=== PATIENT | female | born 1970 | race Caucasian/White ===

== ENCOUNTER → 2021-10-07 13:35 | Outpatient (CLI) | payer OTHER, SELFPAY ==
--- NOTE | ~2021-10-07 | CT_ITS ---
EXAMINATION: CT IAC/mastoids BI wo con DATE: 10/07/2021 14:00 INDICATION: Bilateral chronic otitis media. TECHNIQUE: Computed tomography (CT) of the temporal bones was performed without intravenous contrast. Automated exposure control and iterative reconstruction technique were employed. The dose-length pro duct was 215.76 mGy-cm. COMPARISON: None FINDINGS: RIGHT TEMPORAL BONE: The internal auditory canal, cochlea, vestibule, semicircular canals, vestibular aqueduct, carotid ca nal, jugular bulb, facial nerve course, ossicles, Prussak space, scutum, mastoid air cells, and exter nal auditory canal are normal. There is retraction of the tympanic membrane, which is thickened. Ther e is a small volume of material anterior to the ossicles. LEFT TEMPORAL BONE: The internal auditory canal, cochlea, vestibule, semicircular canals, vestibular aqueduct, carotid ca nal, jugular bulb, and facial nerve course are normal. The ossicles are absent. There is an implant i n the tympanic cavity in the expected area of the ossicles. There is soft tissue lateral and posterio r to the implant including in Prussak space. There is blunting of the scutum. There is retraction of the tympanic membrane. There are changes of mastoidectomy. There is a small volume of material in ext ernal auditory canal, likely cerumen. IMPRESSION: 1. Small volume of material in right tympanic cavity with thickening and retraction of the tympanic m embrane. No erosions of bone. 2. Implant in the expected position of the left-sided ossicles, which are absent. 3. Material in the left tympanic cavity with erosions of the scutum and thickening and retraction of the tympanic membrane, consistent with chronic otitis media versus cholesteatoma. Reviewed, dictated and finalized at location B. IMPRESSION: 1. Small volume of material in right tympanic cavity with thickening and retrac tion of the tympanic membrane. No erosions of bone. 2. Implant in the expected position of the left-sided ossicles, which are absen t. 3. Material in the left tympanic cavity with erosions of the scutum and thicken ing and retraction of the tympanic membrane, consistent with chronic otitis med ia versus cholesteatoma.
== END ==
PROVIDERS: PCP Physician Assistant
DX: H66.93 Otitis media, unspecified, bilateral (principal)
CPT/HCPCS: 70480

== ENCOUNTER 2022-03-18 07:16 | Outpatient (CLI) | payer OTHER, SELFPAY ==
[2022-03-18 07:58] LABS: Alanine Aminotransferase 28 U/L (6-35); Albumin Level 4.3 g/dL (3.5-5.1); Alkaline Phosphatase 65 U/L (38-126); Anion Gap 7 mmol/L (8-16); Aspartate Amino Transferase 26 U/L (14-36); Bilirubin,Total 0.8 mg/dL (0.2-1.3); Blood Urea Nitrogen 14 mg/dL (7-17); Calcium 8.9 mg/dL (8.4-10.2); Carbon Dioxide 27 mmol/L (22-30); Chloride 105 mmol/L (98-107); Estimated Glomerular Filt Rate 58; Glucose 99 mg/dL (65-110); Potassium 3.9 mmol/L (3.4-5.0); Sodium 139 mmol/L (137-145)
[2022-03-18 08:03] LABS: Basophils Percent Auto 0.5 % (0.2-1.2); Eosinophils Absolute Auto 0.2 K/mm3 (0-0.3); Hematocrit 43.3 % (37.0-47.0); Hemoglobin 14.2 g/dL (12.0-15.0); Immature Granulocyte Absolute 0.02 K/mm3 (0.00-0.031); Immature Granulocyte Percent A 0.3 % (0-0.5); Lymphocytes Absolute Auto 2.31 K/mm3 (0.9-3.2); Mean Corpuscular HGB Conc 32.8 g/dl (32-36); Mean Corpuscular Hemoglobin 29.6 pg (26-34); Mean Corpuscular Volume 90.2 fl (80-100); Mean Platelet Volume 10.5 fl (7.4-10.4); Monocytes Absolute Auto 0.4 K/mm3 (0.1-0.6); Monocytes Percent Auto 6.7 % (2.6-8.5); Neutrophils Percent Auto 50.5 % (45.5-73.1); Platelet Count Result 241 k/mm3 (150-375); Red Cell Distribution Width 12.8 % (11.5-14.5); White Blood Count 5.9 K/mm3 (4.5-10.0)
[2022-03-18 08:14] LABS: Free T4 Free Thyroxine 1.08 ng/mL (0.78-2.19); Vitamin D 25 Hydroxy 40.1 ng/mL
[2022-03-22 04:58] LABS: Sex Hormone Binding Globulin 71 nmol/L (17-124); Thyroid Peroxidase Antibodies <1 IU/mL (<9)
[2022-03-23 15:47] LABS: FSH 113.1 mIU/mL (***)
[2022-03-27 16:45] LABS: Estradiol, Ultrasensitive 18 pg/mL
[2022-03-29 04:49] LABS: Testosterone Free 1.6 pg/mL (0.2-5.0)
== END 2022-03-18 07:17 | disposition home or self-care (01) ==
LOC: ANHLAB 07:19
PROVIDERS: PCP Physician Assistant; Visit Provider Obstetrics & Gynecology
DX: R53.83 Other fatigue (principal); R63.5 Abnormal weight gain
CPT/HCPCS: 36415; 80053; 82306; 82607; 82670; 83001; 84270; 84402; 84439; 84443; 85025; 86376

== ENCOUNTER 2022-04-07 12:46 | Outpatient (CLI) | payer OTHER, SELFPAY ==
[2022-04-11 10:23] LABS: Testosterone Total 20 ng/dL (2-45)
[2022-04-12 04:03] LABS: Triiodothyronine T3 Free 3.3 pg/mL (2.3-4.2)
== END 2022-04-07 12:47 | disposition home or self-care (01) ==
LOC: ANHLAB 12:47
PROVIDERS: PCP Physician Assistant; Visit Provider Obstetrics & Gynecology
DX: R63.5 Abnormal weight gain (principal); R53.83 Other fatigue
CPT/HCPCS: 36415; 84403; 84481

== ENCOUNTER 2022-04-20 07:00 | Outpatient (NON) | payer OTHER, SELFPAY | END 2022-04-20 07:01 | disposition home or self-care (01) | LOC: ANHLAB 04-21 16:02 | PROVIDERS: PCP Physician Assistant; Visit Provider Nurse Practitioner | DX: D22.39 Melanocytic nevi of other parts of face (principal) | CPT/HCPCS: 88305; 88342 ==

== ENCOUNTER 2023-12-07 13:37 | Outpatient (CLI) | payer OTHER, SELFPAY ==
--- NOTE | ~2023-12-07 | MM_ITS ---
EXAMINATION: MM screening noe BI w luis HISTORY: Screening mammogram TECHNIQUE: Craniocaudal and mediolateral oblique 3-D tomosynthesis images were obtained and synthetic 2-D images were generated. CAD analysis was submitted and interpreted. COMPARISON: No prior mammogram is available for comparison at this institution. BREAST PARENCHYMAL COMPOSITION:Not Dense. There are scattered areas of fibroglandular density. FINDINGS: No suspicious mass, calcification, or architectural distortion are identified in either krishan ast to suggest malignancy. There has been no suspicious interval change. IMPRESSION: No mammographic evidence of malignancy. Recommend routine screening mammography in one year. BI-RADS Category 1: Negative Reviewed, dictated and finalized at location .
== END 2023-12-07 13:38 | disposition home or self-care (01) ==
LOC: ANHIMG 13:39
PROVIDERS: PCP Family Medicine; Visit Provider Obstetrics & Gynecology
DX: Z12.31 Encounter for screening mammogram for malignant neoplasm of breast (principal)
CPT/HCPCS: 77063; 77067

== ENCOUNTER 2024-10-10 12:50 | Outpatient (CLI) | payer OTHER, SELFPAY ==
[2024-10-10 13:38] LABS: Basophils Absolute Auto 0.1 K/mm3 (0.0-0.1); Basophils Percent Auto 0.8 % (0.2-1.2); Eosinophils Absolute Auto 0.7 K/mm3 (0-0.3); Eosinophils Percent Auto 8.7 % (0-4.4); Hematocrit 41.8 % (37.0-47.0); Hemoglobin 13.2 g/dL (12.0-15.0); Immature Granulocyte Absolute 0.03 K/mm3 (0.00-0.031); Immature Granulocyte Percent A 0.4 % (0-0.5); Lymphocytes Absolute Auto 2.77 K/mm3 (0.9-3.2); Lymphocytes Percent Auto 33.5 % (18.3-44.2); Mean Corpuscular HGB Conc 31.6 g/dl (32-36); Mean Corpuscular Hemoglobin 28.3 pg (26-34); Mean Corpuscular Volume 89.7 fl (80-100); Monocytes Absolute Auto 0.6 K/mm3 (0.1-0.6); Monocytes Percent Auto 6.7 % (2.6-8.5); Neutrophils Absolute Auto 4.1 K/mm3 (1.3-6.7); Neutrophils Percent Auto 49.9 % (45.5-73.1); Platelet Count Result 267 k/mm3 (150-375); Red Blood Count 4.66 M/mm3 (4.2-5.4); Red Cell Distribution Width 13.3 % (11.5-14.5); White Blood Count 8.3 K/mm3 (4.5-10.0)
[2024-10-10 13:58] LABS: Alanine Aminotransferase 86 U/L (6-35); Albumin Level 4.3 g/dL (3.5-5.1); Alkaline Phosphatase 69 U/L (38-126); Anion Gap 8 mmol/L (4-12); Aspartate Amino Transferase 48 U/L (14-36); Bilirubin,Total 0.8 mg/dL (0.2-1.3); Blood Urea Nitrogen 13 mg/dL (7-17); Calcium 9.1 mg/dL (8.4-10.2); Carbon Dioxide 25 mmol/L (22-30); Chloride 104 mmol/L (98-107); Cholesterol 234 mg/dL (0-200); Estimated Glomerular Filt Rate > 60; Glucose 94 mg/dL (65-110); HDL Direct 41 mg/dL; Potassium 3.9 mmol/L (3.4-5.0); Sodium 137 mmol/L (137-145); Triglycerides 197 mg/dL (<150)
[2024-10-10 14:08] LABS: Hemoglobin A1C 5.4 % (<5.7)
[2024-10-10 14:09] LABS: LDL Cholesterol Direct 128 mg/dL
[2024-10-10 14:32] LABS: Vitamin D 25 Hydroxy 18.1 ng/mL
[2024-10-10 15:15] LABS: Folic Acid 6.1 ng/mL (2.76->20)
--- OUTSIDE RECORDS SUMMARY | 2024-10-11 13:33 | XMS_ITS | Encounter Summary ---
Author Organization [facility] Address [address] [place] [address] Care Team Providers Care Arboriculture Teacher Name Role Phone Conversion, History Primary Care Provider Bhavesh cohen Encounter Details Date Type Department Care Team (Late st Contact Info) Description 08/11/2024 Abstract [facility] Oncology and Hematology Juvenal Jackie [address] [place] [phone] Molly Hastings MD [address] [place] [address] Social History Tobacco Use Types Packs/Day Years Used Date Smoking Tobacco: Never Alcohol Use Standard Drinks/Week Comments No 0 (1 standard drink = 0.6 oz pur e alcohol) Comments Unknown Sex and Gender Information Value Date Recorded Sex Assigned at Not on file Legal Sex Female 5:23 AM INSTRUMENT AND CONTROL SERVICE PERSON Gender Identity Not on file Sexual Orientation Not on file documented as of this encounter Plan of Treatment Not on file documented as of this encounter Visit Diagnoses Not on filedocumented in this encounter Care Teams Arboriculture Teacher Relationship Specialty Start Date End Date Conversion, History PCP - General 02/01/07 documented as of this encounter
--- OUTSIDE RECORDS SUMMARY | 2024-10-11 13:33 | XMS_ITS | Clinical Summary ---
Author Organization [facility] Address [address] [place] [address] Phone Care Team Providers Care Press Cleaner Name Role Phone Conversion, History Primary Care Provider Unavai lable Allergies Active Allergy Reactions Criticality Noted Date Comments Sulfa (Sulfonamide Antibiotics) Rash Low 04/11 Medications No known medications Encounters Date Type Department Care Team Description 08/11/2024 Abstract [facility] Oncology and Hematology Juvenal Mejia [address] [address] Molly Hastings MD from Last 3 Months Social History Tobacco Use Types Packs/Day Years Used Date Smoking Tobacco: Never Alcohol Use Standard Drinks/Week Comments No 0 (1 standard drink = 0.6 oz pur e alcohol) Comments Unknown Sex and Gender Information Value Date Recorded Sex Assigned at Not on file Legal Sex Female 5:23 AM CAPSULE FILLER Gender Identity Not on file Sexual Orientation Not on file Last Filed Vital Signs Vital Sign Reading Time Taken Comments Blood Pressure 119/70 04/30/2009 5:56 PM CAPSULE FILLER Pulse 72 04/30/2009 5:56 PM CAPSULE FILLER Temperature 36.3 C (97.3 F) 04/30/2009 5:56 PM CAPSULE FILLER Respiratory Rate 18 04/30/2009 5:56 PM CAPSULE FILLER Oxygen Saturation 97% 04/30/2009 5:56 PM CAPSULE FILLER Inhaled Oxygen Concentration - - Weight 74.8 kg (165 lb) 04/27/2009 4:26 PM CAPSULE FILLER Height 152.4 cm (5') 04/27/2009 4:26 PM CAPSULE FILLER Body Mass Index 32.22 04/27/2009 4:26 PM CAPSULE FILLER Plan of Treatment Health Maintenance Due Date Last Done Comments DTAP/TDAP/TD VACCINES (1 - Tdap) 09/09/1987 HEPATITIS B VACCINES (1 of 3 - 19+ 3-dose series) 08/11 HPV/Cotest (21-29) 1989 CERVICAL CANCER SCREENING 1998 HPV/Cotest (30-65) 1998 PAP SMEAR 1998 BREAST CANCER SCREENING 2008 COLORECTAL SCREENING 2013 Colorectal Cancer Screening 2013 FIT-DNA Q 3 years 2013 FIT/FOBT Q 1 year 2013 Flex Sig/CT Colonography Q 5 years 2013 ZOSTER VACCINE (1 of 2) 2018 INFLUENZA VACCINE (#1) 2024 Medical Devices Implanted Type Area Creative Recruiter Device Identifier Shelf Expiration Date Model / Serial / Lot Barrier Gelfilm [id number] 296-06 Implanted:Qty: 1 on 04/30/[address] [facility] Adhesion Barrier [employer] I 296-06 / / Insurance Advance Directives For more information, please contact: [phone] * Full Code (Latest Code Status on File) Date Activated Date Inactivated Comments 04/30/2009 11:09 AM 04/30/2009 9:34 PM * Full Code Date Activated Date Inactivated Comments 04/30/2009 8:49 AM 04/30/2009 11:09 AM * Full Code Date Activated Date Inactivated Comments 04/30/2009 7:57 AM 04/30/2009 8:49 AM Care Teams Press Cleaner Relationship Specialty Start Date End Date Conversion, History PCP - General 02/01/07
--- OUTSIDE RECORDS SUMMARY | 2024-10-11 13:33 | XMS_ITS | Encounter Summary ---
Author Organization [facility] Address [address] [place] [address] Care Team Providers Care Customer Success Advocate Name Role Phone Conversion, History Primary Care Provider Bhavesh cohen Encounter Details Date Type Department Care Team (Latest Contact Info) Description 02/01/2007 Outpatient Historical [place] [address] [facility] [address] [place] [address] Unspecified Mastoiditis (Primary Dx) Social History Tobacco Use Types Packs/Day Years Used Date Smoking Tobacco: Never Assessed Comments Unknown Sex and Gender Information Value Date Recorded Sex Assigned at Not on file Legal Sex Female 5:23 AM TOWER ERECTOR HELPER Gender Identity Not on file Sexual Orientation Not on file documented as of this encounter Plan of Treatment Not on file documented as of this encounter Procedures Procedure Name Priority Date/Time Associated Diagnosis Comments POC , URINE Routine 02/01/2007 8:35 AM CDT HEMOGLOBIN AND HEMATOCRIT Routine 01/25/2007 3:54 PM CDT documented in this encounter Results * POC , URINE (02/01/2007 8:35 AM CDT) , URINE POC Negative Negative INTERFACE SYSTEM 02/01/2007 8:35 AM CDT G Tito Meade MD POINT OF CARE TESTING Edite d INTERFACE SYSTEM Refer to clinic/hospital department * HEMOGLOBIN AND HEMATOCRIT (01/25/2007 3:54 PM CDT) HEMOGLOBIN 13.1 11.8 - 14.8 g/dL INTERFACE SYSTEM HEMATOCRIT 38.1 35.5 - 44.0 % INTERFACE SYSTEM 01/25/2007 3:54 PM CDT [facility] Tito Meade MD HEMATOLOGY ORDERABLES Edite d INTERFACE SYSTEM Refer to clinic/hospital department documented in this encounter Visit Diagnoses Diagnosis Unspecified mastoiditis- Primary documented in this encounter Care Teams Customer Success Advocate Relationship Specialty Start Date End Date Conversion, History PCP - General 02/01/07 documented as of this encounter
--- OUTSIDE RECORDS SUMMARY | 2024-10-11 13:33 | XMS_ITS | Encounter Summary ---
Author Organization [facility] Address [address] [place] [address] Care Team Providers Care Activities Specialist Name Role Phone Conversion, History Primary Care Provider Bhavesh cohen Encounter Details Date Type Department Care Team (Latest Contact Info) Description 01/22/2008 Outpatient Historical [place] [address] [facility] [address] [place] [address] Unspecified Cholesteatoma Social History Tobacco Use Types Packs/Day Years Used Date Smoking Tobacco: Never Assessed Comments Unknown Sex and Gender Information Value Date Recorded Sex Assigned at Not on file Legal Sex Female 5:23 AM GRADES 9 THRU 12 VISITING TEACHER Gender Identity Not on file Sexual Orientation Not on file documented as of this encounter Plan of Treatment Not on file documented as of this encounter Procedures Procedure Name Priority Date/Time Associated Diagnosis Comments PATHOLOGY Routine 02/21/2008 11:41 AM CDT POC , URINE Routine 02/21/2008 7:20 AM CDT HEMOGLOBIN AND HEMATOCRIT Routine 02/03/2008 8:55 AM CDT documented in this encounter Results * PATHOLOGY (02/21/2008 11:41 AM CDT) [place]AL [place] [facility] [address], [place] [address] Patient: SHEA GARZA : 1970 Procedure Date: 02/21/2008 Accession Date: 02/21/2008 Case No: [id number] Ordering Dr: Belinda RICO Case types AW, BW, FW, NW and SH are performed by [facility] [place], [place], [place] SURGICAL PATHOLOGY & NON-GYNECOLOGIC CYTOPATHOLOGY REPORT DIAGNOSIS EAR, MIDDLE EAR, LEFT, TYMPANOPLASTY: - CHOLESTEATOMA AND FIBROSIS. Specimen Description: Middle ear contents. Operative Procedure: Left tympanoplasty with nerve monitoring. Patient Information/Histo ry/Diagnosis: Left tympanic membrane perforation with prosthesis extrusion. Gross: Received in a single container and labeled Shea Garza, middle ear contents is an aggregate of heck, irregular pieces of tissue measuring 1.0 x 0.7 x 0.1 cm. The entire specimen is submitted in cassette A1. LWL/DAMASO 02.21.2008 01:55 pm Microscopic: The slide is labeled [id number], Herminia. Sections show squamous epithelium with abundant lamellar keratin and marked fibrosis in the underlying subepithelial tissue. MACIEJ/TMZ 02.24.2008 01:49 pm Staging Form: No ELECTRONIC SIGNATURE FOR GAURANG WARREN M.D.- 02/24/08 04:31 pm INTERFACE SYSTEM 02/21/2008 11:4 1 AM CDT Belinda Rico MD PATHOLOGY/CYTOLOGY ORDERABL ES Final Result Performing Organization Address [facility] Co de Phone Number INTERFACE SYSTEM Refer to clinic/hospital department * POC , URINE (02/21/2008 7:20 AM CDT) , URINE POC Negative Negative [facility] Urine specimen (specimen) 02/21/2008 7:20 AM CDT 02/21/2008 7:20 AM CDT Belinda Rico MD POINT OF CARE TESTING Final Result Performing Organization Address [facility] Co de Phone Number INTERFACE SYSTEM Refer to clinic/hospital department [facility] CLIA# [id number] [address] [place] [address] * HEMOGLOBIN AND HEMATOCRIT (02/03/2008 8:55 AM CDT) HEMATOCRIT 42.5 35.5 - 44.0 % [facility] HEMOGLOBIN 14.1 11.8 - 14.8 g/dL [facility] Blood specimen (specimen) 02/03/2008 8:55 AM CDT 02/03/2008 9:42 AM CDT [facility] [place] MD HEMATOLOGY ORDERABLES Final Result INTERFACE SYSTEM Refer to clinic/hospital department [facility] CLIA# [id number] [address] [place] [address] documented in this encounter Visit Diagnoses Diagnosis Cholesteatoma, unspecified documented in this encounter Care Teams Activities Specialist Relationship Specialty Start Date End Date Conversion, History PCP - General 02/01/07 documented as of this encounter
--- OUTSIDE RECORDS SUMMARY | 2024-10-11 13:33 | XMS_ITS | Encounter Summary ---
Author Organization [facility] Address [address] [place] [address] Care Team Providers Care Flight Attendant/Inflight Supervisor Name Role Phone Conversion, History Primary Care Provider Bhavesh cohen Encounter Details Date Type Department Care Team (Late st Contact Info) Description 08/22/2005 Outpatient Historical [place] [address] [facility] [address] [place] [address] Other Diseases of Nasal Cavity and Sinuses (Primary Dx) Social History Tobacco Use Types Packs/Day Years Used Date Smoking Tobacco: Never Assessed Comments Unknown Sex and Gender Information Value Date Recorded Sex Assigned at Not on file Legal Sex Female 5:23 AM COPPER MINER Gender Identity Not on file Sexual Orientation Not on file documented as of this encounter Plan of Treatment Not on file documented as of this encounter Visit Diagnoses Diagnosis Nasal/sinus dis NEC- Primary Other diseases of nasal cavity and sinuses documented in this encounter Care Teams Flight Attendant/Inflight Supervisor Relationship Specialty Start Date End Date Conversion, History PCP - General 02/01/07 documented as of this encounter
== END 2024-10-10 12:51 | disposition home or self-care (01) ==
LOC: ANHLAB 12:53
PROVIDERS: PCP Family Medicine; Visit Provider Obstetrics & Gynecology
DX: R63.5 Abnormal weight gain (principal); R53.83 Other fatigue
CPT/HCPCS: 36415; 80053; 80061; 82306; 82607; 82746; 83036; 84443; 85025

== ENCOUNTER 2024-10-17 11:50 | Outpatient (CLI) | payer OTHER, SELFPAY ==
--- OUTSIDE RECORDS SUMMARY | 2024-10-17 11:53 | XMS_ITS | Encounter Summary ---
Author Organization [employer] Address [address] [place] [address] Care Team Providers Care Marksmanship Instructor Name Role Phone Conversion, History Primary Care Provider Bhavesh cohen Encounter Details Date Type Department Care Team (Latest Contact Info) Description 01/22/2008 Outpatient Historical [place] [address] [facility] [address] [place] [address] Unspecified Cholesteatoma Social History Tobacco Use Types Packs/Day Years Used Date Smoking Tobacco: Never Assessed Comments Unknown Sex and Gender Information Value Date Recorded Sex Assigned at Not on file Legal Sex Female 5:23 AM ELECTRIC MOTOR REBUILDER Gender Identity Not on file Sexual Orientation [...] PATHOLOGY (02/21/2008 11:41 AM CDT) FINAL REPORT [facility] [address] [place], [place] [address] Patient: SHEA GARZA : 1970 Procedure Date: 02/21/2008 Accession Date: 02/21/2008 Case No: [id number] Ordering Dr: Belinda RICO Case types AW, BW, FW, NW and SH are performed by [facility] [place] [place], [place] SURGICAL PATHOLOGY & NON-GYNECOLOGIC CYTOPATHOLOGY REPORT [...] 01:55 pm Microscopic: The slide is labeled [id number], Herminia. Sections show squamous epithelium with abundant lamellar keratin and marked fibrosis in the underlying subepithelial tissue. MACIEJ/TMZ 02.24.2008 01:49 pm Staging Form: No ELECTRONIC SIGNATURE FOR GAURANG WARREN M.D.- 02/24/08 04:31 pm INTERFACE SYSTEM 02/21/2008 11:4 1 AM CDT Belnida Rico MD PATHOLOGY/CYTOLOGY ORDERABL ES Final Result Performing Organization Address [facility] Co de Phone Number INTERFACE SYSTEM Refer to clinic/hospital department * POC , URINE (02/21/2008 7:20 AM CDT) , URINE POC Negative Negative [facility] Urine specimen (specimen) 02/21/2008 7:20 AM CDT 02/21/2008 7:20 AM CDT Belinda Rico MD POINT OF CARE TESTING Final Result Performing Organization Address [facility] Co de Phone Number INTERFACE SYSTEM Refer to clinic/hospital department [facility] CLIA# [id number] [address] [place] [address] * HEMOGLOBIN AND HEMATOCRIT (02/03/2008 8:55 AM CDT) HEMATOCRIT 42.5 35.5 - 44.0 % [facility] HEMOGLOBIN 14.1 11.8 - 14.8 g/dL [facility] Blood specimen (specimen) 02/03/2008 8:55 AM CDT 02/03/2008 9:42 AM CDT [facility] Tito Rico MD HEMATOLOGY ORDERABLES Final Result INTERFACE SYSTEM Refer to clinic/hospital department [facility] CLIA# [id number] [address] [place] [address] documented in this encounter Visit Diagnoses Diagnosis Cholesteatoma, unspecified documented in this encounter Care Teams Marksmanship Instructor Relationship Specialty Start Date End Date Conversion, History PCP - General 02/01/07 documented as of this encounter
--- OUTSIDE RECORDS SUMMARY | 2024-10-17 11:53 | XMS_ITS | Encounter Summary ---
Author Organization [facility] Address [address] [place] [address] Care Team Providers Care Utility Operator Yarn Name Role Phone Conversion, History Primary Care Provider Bhavesh cohen Encounter Details Date Type Department Care Team (Late st Contact Info) Description 08/11/2024 Abstract [facility] Oncology and Hematology Juvenal Jackie [address] [place] [address] Molly Hastings MD [address] [place] [address] Social History Tobacco Use Types Packs/Day Years Used Date Smoking Tobacco: Never Alcohol Use Standard Drinks/Week Comments No 0 (1 standard drink = 0.6 oz pur e alcohol) Comments Unknown Sex and Gender Information Value Date Recorded Sex Assigned at Not on file Legal Sex Female 5:23 AM POLYSOMNOGRAPHIC TECH Gender Identity Not on file Sexual Orientation Not on file documented as of this encounter Plan of Treatment Not on file documented as of this encounter Visit Diagnoses Not on filedocumented in this encounter Care Teams Utility Operator Yarn Relationship Specialty Start Date End Date Conversion, History PCP - General 02/01/07 documented as of this encounter
--- OUTSIDE RECORDS SUMMARY | 2024-10-17 11:53 | XMS_ITS | Encounter Summary ---
Author Organization [facility] Address [address] [place] [address] Care Team Providers Care Game Artist Name Role Phone Conversion, History Primary Care Provider Bhavesh cohen Encounter Details Date Type Department Care Team (Late st Contact Info) Description 08/22/2005 Outpatient Historical [place] [address] [facility] [address] [place] [address] Other Diseases of Nasal Cavity and Sinuses (Primary Dx) Social History Tobacco Use Types Packs/Day Years Used Date Smoking Tobacco: Never Assessed Comments Unknown Sex and Gender Information Value Date Recorded Sex Assigned at Not on file Legal Sex Female 5:23 AM STORES ASSISTANT Gender Identity Not on file Sexual Orientation Not on file documented as of this encounter Plan of Treatment Not on file documented as of this encounter Visit Diagnoses Diagnosis Nasal/sinus dis NEC- Primary Other diseases of nasal cavity and sinuses documented in this encounter Care Teams Game Artist Relationship Specialty Start Date End Date Conversion, History PCP - General 02/01/07 documented as of this encounter
--- OUTSIDE RECORDS SUMMARY | 2024-10-17 11:53 | XMS_ITS | Clinical Summary ---
Author Organization [facility] Address [address] [place] [address] Phone Care Team Providers Care Floor Installation Mechanic Name Role Phone Conversion, History Primary Care Provider Unavai lable Allergies Active Allergy Reactions Criticality Noted Date Comments Sulfa (Sulfonamide Antibiotics) Rash Low 04/11 Medications No known medications Encounters Date Type Department Care Team Description 08/11/2024 Abstract [facility] Oncology and Hematology Juvenal Mejia [address] [address] Molly Hastings MD from Last 3 Months Social History Tobacco Use Types Packs/Day Years Used Date Smoking Tobacco: Never Alcohol Use Standard Drinks/Week Comments No 0 (1 standard drink = 0.6 oz pur e alcohol) Comments Unknown Sex and Gender Information Value Date Recorded Sex Assigned at Not on file Legal Sex Female 5:23 AM LABOR AND DELIVERY NURSE Gender Identity Not on file Sexual Orientation Not on file Last Filed Vital Signs Vital Sign Reading Time Taken Comments Blood Pressure 119/70 04/30/2009 5:56 PM LABOR AND DELIVERY NURSE Pulse 72 04/30/2009 5:56 PM LABOR AND DELIVERY NURSE Temperature 36.3 C (97.3 F) 04/30/2009 5:56 PM LABOR AND DELIVERY NURSE Respiratory Rate 18 04/30/2009 5:56 PM LABOR AND DELIVERY NURSE Oxygen Saturation 97% 04/30/2009 5:56 PM LABOR AND DELIVERY NURSE Inhaled Oxygen Concentration - - Weight 74.8 kg (165 lb) 04/27/2009 4:26 PM LABOR AND DELIVERY NURSE Height 152.4 cm (5') 04/27/2009 4:26 PM LABOR AND DELIVERY NURSE Body Mass Index 32.22 04/27/2009 4:26 PM LABOR AND DELIVERY NURSE Plan of Treatment Health Maintenance Due Date [...] (#1) 2024 Medical Devices Implanted Type Area Biology Intern Device Identifier Shelf Expiration Date Model / Serial / Lot Barrier Gelfilm [id number] Implanted:Qty: 1 on 04/30/2009 at [facility] Adhesion Barrier [employer] I 296-06 / / Insurance Advance Directives For more information, please contact: [phone] * Full Code (Latest Code Status on File) Date Activated Date Inactivated Comments 04/30/2009 11:09 AM 04/30/2009 9:34 PM * Full Code Date Activated Date Inactivated Comments 04/30/2009 8:49 AM 04/30/2009 11:09 AM * Full Code Date Activated Date Inactivated Comments 04/30/2009 7:57 AM 04/30/2009 8:49 AM Care Teams Floor Installation Mechanic Relationship Specialty Start Date End Date Conversion, History PCP - General 02/01/07
--- OUTSIDE RECORDS SUMMARY | 2024-10-17 11:53 | XMS_ITS | Encounter Summary ---
Author Organization [employer] Address [address] [place] [address] Care Team Providers Care Forestry Hunter Name Role Phone Conversion, History Primary Care Provider Bhavesh cohen Encounter Details Date Type Department Care Team (Latest Contact Info) Description 02/01/2007 Outpatient Historical [place] [address] [facility] [address] [place] [address] Unspecified Mastoiditis (Primary Dx) Social History Tobacco Use Types Packs/Day Years Used Date Smoking Tobacco: Never Assessed Comments Unknown Sex and Gender Information Value Date Recorded Sex Assigned at Not on file Legal Sex Female 5:23 AM LINE CONSTRUCTION SUPERINTENDENT Gender Identity Not on file Sexual Orientation [...] % INTERFACE SYSTEM 01/25/2007 3:54 PM CDT [facility] [place]ade MD HEMATOLOGY ORDERABLES Edite d INTERFACE SYSTEM Refer to clinic/hospital department documented in this encounter Visit Diagnoses Diagnosis Unspecified mastoiditis- Primary documented in this encounter Care Teams Forestry Hunter Relationship Specialty Start Date End Date Conversion, History PCP - General 02/01/07 documented as of this encounter
--- NOTE | 2024-10-17 11:56 | ECG_ITS ---
Test Date: 2024-10-17 12:05:12 Measurements Intervals [place] Rate: 62 P: 5 GA: 118 QRS: 7 QRSD: 90 T: 19 QT: 397 QTc: 404 Interpretive Statements SINUS RHYTHM WITH SHORT GA INTERVAL LOW QRS VOLTAGE IN PRECORDIAL LEADS [QRS DEFLECTION < 1.0 mV IN CHEST LEADS] No previous ECG available for comparison Electronically Signed On 10-17-2024 12:18:55 CDT by Nini Long M.D.
== END 2024-10-17 11:51 | disposition home or self-care (01) ==
LOC: ANHCARD 11:51
PROVIDERS: PCP Family Medicine; Visit Provider Student in an Organized Health Care Education/Training Program
DX: R00.2 Palpitations (principal)
CPT/HCPCS: 93005

== ENCOUNTER 2024-10-31 13:30 | Outpatient (CLI) | payer OTHER, SELFPAY ==
--- OUTSIDE RECORDS SUMMARY | 2024-10-31 13:34 | XMS_ITS | Encounter Summary ---
Author Organization [facility] Address [address] [place] [address] Care Team Providers Care Sprinkler Fitter Apprentice Name Role Phone Conversion, History Primary Care Provider Bhavesh cohen Encounter Details Date Type Department Care Team (Late st Contact Info) Description 08/11/2024 Abstract [facility] Oncology and Hematology Juvenal Jackie [address] [place] [phone] Molly Hastings MD [address] [place] [address] Social History Tobacco Use Types Packs/Day Years Used Date Smoking Tobacco: Never Alcohol Use Standard Drinks/Week Comments No 0 (1 standard drink = 0.6 oz pur e alcohol) Comments Unknown Sex and Gender Information Value Date Recorded Sex Assigned at Not on file Legal Sex Female 5:23 AM CERTIFIED PATHOLOGY ASSISTANT Gender Identity Not on file Sexual Orientation Not on file documented as of this encounter Plan of Treatment Not on file documented as of this encounter Visit Diagnoses Not on filedocumented in this encounter Care Teams Sprinkler Fitter Apprentice Relationship Specialty Start Date End Date Conversion, History PCP - General 02/01/07 documented as of this encounter
--- OUTSIDE RECORDS SUMMARY | 2024-10-31 13:34 | XMS_ITS | Encounter Summary ---
Author Organization [facility] Address [address] [place] [address] Care Team Providers Care Manager Health Name Role Phone Conversion, History Primary Care Provider Bhavesh cohen Encounter Details Date Type Department Care Team (Latest Contact Info) Description 02/01/2007 Outpatient Historical [place] [address] [facility] [address] [place] [address] Unspecified Mastoiditis (Primary Dx) Social History Tobacco Use Types Packs/Day Years Used Date Smoking Tobacco: Never Assessed Comments Unknown Sex and Gender Information Value Date Recorded Sex Assigned at Not on file Legal Sex Female 5:23 AM ACCOUNT DEVELOPER Gender Identity Not on file Sexual Orientation [...] % INTERFACE SYSTEM 01/25/2007 3:54 PM CDT [facility] Tito Meade MD HEMATOLOGY ORDERABLES Edite d INTERFACE SYSTEM Refer to clinic/hospital department documented in this encounter Visit Diagnoses Diagnosis Unspecified mastoiditis- Primary documented in this encounter Care Teams Manager Health Relationship Specialty Start Date End Date Conversion, History PCP - General 02/01/07 documented as of this encounter
--- OUTSIDE RECORDS SUMMARY | 2024-10-31 13:34 | XMS_ITS | Clinical Summary ---
Author Organization [facility] Address [address] [place] [address] Phone Care Team Providers Care Special Class Welder Name Role Phone Conversion, History Primary Care Provider Unavai lable Allergies Active Allergy Reactions Criticality Noted Date Comments Sulfa (Sulfonamide Antibiotics) Rash Low 04/11 Medications No known medications Encounters Date Type Department Care Team Description 08/11/2024 Abstract [facility] Oncology and Hematology Juvenal Mejia [address] [address] Molly Hastings MD from Last 3 Months Social History Tobacco Use Types Packs/Day Years Used Date Smoking Tobacco: Never Alcohol Use Standard Drinks/Week Comments No 0 (1 standard drink = 0.6 oz pur e alcohol) Comments Unknown Sex and Gender Information Value Date Recorded Sex Assigned at Not on file Legal Sex Female 5:23 AM BRASSIERE CUP MOLD CUTTER Gender Identity Not on file Sexual Orientation Not on file Last Filed Vital Signs Vital Sign Reading Time Taken Comments Blood Pressure 119/70 04/30/2009 5:56 PM BRASSIERE CUP MOLD CUTTER Pulse 72 04/30/2009 5:56 PM BRASSIERE CUP MOLD CUTTER Temperature 36.3 C (97.3 F) 04/30/2009 5:56 PM BRASSIERE CUP MOLD CUTTER Respiratory Rate 18 04/30/2009 5:56 PM BRASSIERE CUP MOLD CUTTER Oxygen Saturation 97% 04/30/2009 5:56 PM BRASSIERE CUP MOLD CUTTER Inhaled Oxygen Concentration - - Weight 74.8 kg (165 lb) 04/27/2009 4:26 PM BRASSIERE CUP MOLD CUTTER Height 152.4 cm (5') 04/27/2009 4:26 PM BRASSIERE CUP MOLD CUTTER Body Mass Index 32.22 04/27/2009 4:26 PM BRASSIERE CUP MOLD CUTTER Plan of Treatment Health Maintenance Due Date [...] (#1) 2024 Medical Devices Implanted Type Area Pipe Organ Tuner And Repairer Device Identifier Shelf Expiration Date Model / Serial / Lot Barrier Gelfilm [id number] 296-06 Implanted:Qty: 1 on 04/30/2009 at [facility] Adhesion Barrier [employer] I 296-06 / / Insurance Advance Directives For more information, please contact: [phone] * Full Code (Latest Code Status on File) Date Activated Date Inactivated Comments 04/30/2009 11:09 AM 04/30/2009 9:34 PM * Full Code Date Activated Date Inactivated Comments 04/30/2009 8:49 AM 04/30/2009 11:09 AM * Full Code Date Activated Date Inactivated Comments 04/30/2009 7:57 AM 04/30/2009 8:49 AM Care Teams Special Class Welder Relationship Specialty Start Date End Date Conversion, History PCP - General 02/01/07
--- OUTSIDE RECORDS SUMMARY | 2024-10-31 13:34 | XMS_ITS | Encounter Summary ---
Author Organization [facility] Address [address] [place] [address] Care Team Providers Care Food Service Coordinator Name Role Phone Conversion, History Primary Care Provider Bhavesh cohen Encounter Details Date Type Department Care Team (Latest Contact Info) Description 01/22/2008 Outpatient Historical [place] [address] [facility] [address] [place] [address] Unspecified Cholesteatoma Social History Tobacco Use Types Packs/Day Years Used Date Smoking Tobacco: Never Assessed Comments Unknown Sex and Gender Information Value Date Recorded Sex Assigned at Not on file Legal Sex Female 5:23 AM PACKAGE REINSPECTOR Gender Identity Not on file Sexual Orientation [...] [facility] [address] [place], [place] [address] Patient: SHEA GARZA : 1970 Procedure Date: 02/21/2008 Accession Date: 02/21/2008 Case No: [id number] Ordering Dr: Belinda RICO Case types AW, BW, FW, NW and SH are performed by [facility] [place], [place] SURGICAL PATHOLOGY & NON-GYNECOLOGIC CYTOPATHOLOGY REPORT [...] 01:55 pm Microscopic: The slide is labeled [id number], Herminia. Sections show squamous epithelium with abundant lamellar keratin and marked fibrosis in the underlying subepithelial tissue. MACIEJ/TMZ 02.24.2008 01:49 pm Staging Form: No ELECTRONIC SIGNATURE FOR GAURANG WARREN M.D.- 02/24/08 04:31 pm INTERFACE SYSTEM 02/21/2008 11:4 1 AM CDT Belinda Rico MD PATHOLOGY/CYTOLOGY ORDERABL ES Final Result Performing Organization Address [facility] Co de Phone Number INTERFACE SYSTEM Refer to clinic/hospital department * POC , URINE (02/21/2008 7:20 AM CDT) , URINE POC Negative Negative [facility] Urine specimen (specimen) 02/21/2008 7:20 AM CDT 02/21/2008 7:20 AM CDT Belinda Rico MD POINT OF CARE TESTING Final Result Performing Organization Address [facility] Co de Phone Number INTERFACE SYSTEM Refer to clinic/hospital department [facility] CLIA# [id number] [address] [place] [address] * HEMOGLOBIN AND HEMATOCRIT (02/03/2008 8:55 AM CDT) HEMATOCRIT 42.5 35.5 - 44.0 % [facility] HEMOGLOBIN 14.1 11.8 - 14.8 g/dL [facility] Blood specimen (specimen) 02/03/2008 8:55 AM CDT 02/03/2008 9:42 AM CDT [facility] Tito Rico MD HEMATOLOGY ORDERABLES Final Result INTERFACE SYSTEM Refer to clinic/hospital department [facility] CLIA# [id number] [address] [place] [address] documented in this encounter Visit Diagnoses Diagnosis Cholesteatoma, unspecified documented in this encounter Care Teams Food Service Coordinator Relationship Specialty Start Date End Date Conversion, History PCP - General 02/01/07 documented as of this encounter
--- OUTSIDE RECORDS SUMMARY | 2024-10-31 13:34 | XMS_ITS | Encounter Summary ---
Author Organization [facility] Address [address] [place] [address] Care Team Providers Care International Exchange Coordinator Name Role Phone Conversion, History Primary Care Provider Bhavesh cohen Encounter Details Date Type Department Care Team (Late st Contact Info) Description 08/22/2005 Outpatient Historical [place] [address] [facility] [address] [place] [address] Other Diseases of Nasal Cavity and Sinuses (Primary Dx) Social History Tobacco Use Types Packs/Day Years Used Date Smoking Tobacco: Never Assessed Comments Unknown Sex and Gender Information Value Date Recorded Sex Assigned at Not on file Legal Sex Female 5:23 AM CHILD CARE CENTER ADMINISTRATOR Gender Identity Not on file Sexual Orientation Not on file documented as of this encounter Plan of Treatment Not on file documented as of this encounter Visit Diagnoses Diagnosis Nasal/sinus dis NEC- Primary Other diseases of nasal cavity and sinuses documented in this encounter Care Teams International Exchange Coordinator Relationship Specialty Start Date End Date Conversion, History PCP - General 02/01/07 documented as of this encounter
== END 2024-10-31 13:31 | disposition home or self-care (01) ==
PROVIDERS: PCP Family Medicine; Visit Provider Student in an Organized Health Care Education/Training Program
DX: R00.2 Palpitations (principal)
CPT/HCPCS: 93242

== ENCOUNTER 2025-01-23 14:47 | Outpatient (CLI) | payer OTHER, SELFPAY ==
--- NOTE | ~2025-01-23 | MM_ITS ---
EXAMINATION: MM screening noe BI w luis HISTORY: Screening TECHNIQUE: Craniocaudal and mediolateral oblique 3-D tomosynthesis images were obtained and synthetic 2-D images were generated. CAD analysis was submitted and interpreted. COMPARISON: 12/07/2023 BREAST PARENCHYMAL COMPOSITION: Not dense: There are scattered areas of fibroglandular density. FINDINGS: There is no evidence of suspicious mass, calcification, or architectural distortion to sugg est malignancy in either breast. There has been no suspicious interval change. IMPRESSION: 1. No mammographic evidence of malignancy. 2. Recommend routine screening mammography in one year. BI-RADS Category 1: Negative Reviewed, dictated and finalized at location A.
--- OUTSIDE RECORDS SUMMARY | 2025-01-23 14:50 | XMS_ITS | Clinical Summary ---
Author Organization [facility] Address [address] [place] [address] Phone Care Team Providers Care Kindergartner Name Role Phone Conversion, History Primary Care Provider Unavai lable Allergies Active Allergy Reactions Criticality Noted Date Comments Sulfa (Sulfonamide Antibiotics) Rash Low 04/11 Medications No known medications Social History Tobacco Use Types Packs/Day Years Used Date Smoking Tobacco: Never Alcohol Use Standard Drinks/Week Comments No 0 (1 standard drink = 0.6 oz pur e alcohol) Comments Unknown Sex and Gender Information Value Date Recorded Sex Assigned at Not on file Legal Sex Female 5:23 AM WEB DEVELOPMENT CONSULTANT Gender Identity Not on file Sexual Orientation Not on file Last Filed Vital Signs Vital Sign Reading Time Taken Comments Blood Pressure 119/70 04/30/2009 5:56 PM WEB DEVELOPMENT CONSULTANT Pulse 72 04/30/2009 5:56 PM WEB DEVELOPMENT CONSULTANT Temperature 36.3 C (97.3 F) 04/30/2009 5:56 PM WEB DEVELOPMENT CONSULTANT Respiratory Rate 18 04/30/2009 5:56 PM WEB DEVELOPMENT CONSULTANT Oxygen Saturation 97% 04/30/2009 5:56 PM WEB DEVELOPMENT CONSULTANT Inhaled Oxygen Concentration - - Weight 74.8 kg (165 lb) 04/27/2009 4:26 PM WEB DEVELOPMENT CONSULTANT Height 152.4 cm (5') 04/27/2009 4:26 PM WEB DEVELOPMENT CONSULTANT Body Mass Index 32.22 04/27/2009 4:26 PM WEB DEVELOPMENT CONSULTANT Plan of Treatment Health Maintenance Due Date [...] (1 of 2) 2018 INFLUENZA VACCINE (#1) 2025 Medical Devices Implanted Type Area Benefits Coordinator Device Identifier Shelf Expiration Date Model / Serial / Lot Barrier Gelfilm [id number] 296-06 Implanted:Qty: 1 on 04/30/2009 at [facility] Adhesion Barrier [employer] I 296-06 / / Insurance Advance Directives For more information, please contact: [phone] * Full Code (Latest Code Status on File) Date Activated Date Inactivated Comments 04/30/2009 11:09 AM 04/30/2009 9:34 PM * Full Code Date Activated Date Inactivated Comments 04/30/2009 8:49 AM 04/30/2009 11:09 AM * Full Code Date Activated Date Inactivated Comments 04/30/2009 7:57 AM 04/30/2009 8:49 AM Care Teams Kindergartner Relationship Specialty Start Date End Date Conversion, History PCP - General 02/01/07
--- OUTSIDE RECORDS SUMMARY | 2025-01-23 14:50 | XMS_ITS | Encounter Summary ---
Author Organization [facility] Address [address] [place] [address] Care Team Providers Care Nanotechnology Engineering Technologist Name Role Phone Conversion, History Primary Care Provider Bhavesh cohen Encounter Details Date Type Department Care Team (Latest Contact Info) Description 02/01/2007 Outpatient Historical [place] [address] [facility] [address] [place] [address] Unspecified Mastoiditis (Primary Dx) Social History Tobacco Use Types Packs/Day Years Used Date Smoking Tobacco: Never Assessed Comments Unknown Sex and Gender Information Value Date Recorded Sex Assigned at Not on file Legal Sex Female 5:23 AM FLY FISHING GUIDE Gender Identity Not on file Sexual Orientation [...] % INTERFACE SYSTEM 01/25/2007 3:54 PM CDT [facility] Tito Meade MD HEMATOLOGY ORDERABLES Edite d INTERFACE SYSTEM Refer to clinic/hospital department documented in this encounter Visit Diagnoses Diagnosis Unspecified mastoiditis- Primary documented in this encounter Care Teams Nanotechnology Engineering Technologist Relationship Specialty Start Date End Date Conversion, History PCP - General 02/01/07 documented as of this encounter
--- OUTSIDE RECORDS SUMMARY | 2025-01-23 14:50 | XMS_ITS | Encounter Summary ---
Author Organization [facility] Address [address] [place] [address] Care Team Providers Care Triage Registered Nurse Name Role Phone Conversion, History Primary Care Provider Bhavesh cohen Encounter Details Date Type Department Care Team (Late st Contact Info) Description 08/22/2005 Outpatient Historical [place] [address] [facility] [address] [place] [address] Other Diseases of Nasal Cavity and Sinuses (Primary Dx) Social History Tobacco Use Types Packs/Day Years Used Date Smoking Tobacco: Never Assessed Comments Unknown Sex and Gender Information Value Date Recorded Sex Assigned at Not on file Legal Sex Female 5:23 AM PUBLIC RELATIONS ASSISTANT Gender Identity Not on file Sexual Orientation Not on file documented as of this encounter Plan of Treatment Not on file documented as of this encounter Visit Diagnoses Diagnosis Nasal/sinus dis NEC- Primary Other diseases of nasal cavity and sinuses documented in this encounter Care Teams Triage Registered Nurse Relationship Specialty Start Date End Date Conversion, History PCP - General 02/01/07 documented as of this encounter
--- OUTSIDE RECORDS SUMMARY | 2025-01-23 14:50 | XMS_ITS | Encounter Summary ---
Author Organization [facility] Address [address] [place] [address] Care Team Providers Care Band Sawmill Operator Name Role Phone Conversion, History Primary Care Provider Bhavesh cohen Encounter Details Date Type Department Care Team (Late st Contact Info) Description 08/11/2024 Abstract [facility] Oncology and Hematology Juvenal Jackie [address] [place] [address] Molly Hastings MD [address] [facility] [address] [place] [address] Social History Tobacco Use Types Packs/Day Years Used Date Smoking Tobacco: Never Alcohol Use Standard Drinks/Week Comments No 0 (1 standard drink = 0.6 oz pur e alcohol) Comments Unknown Sex and Gender Information Value Date Recorded Sex Assigned at Not on file Legal Sex Female 5:23 AM WOOD BOAT BUILDER SUPERVISOR Gender Identity Not on file Sexual Orientation Not on file documented as of this encounter Plan of Treatment Not on file documented as of this encounter Visit Diagnoses Not on filedocumented in this encounter Care Teams Band Sawmill Operator Relationship Specialty Start Date End Date Conversion, History PCP - General 02/01/07 documented as of this encounter
--- OUTSIDE RECORDS SUMMARY | 2025-01-23 14:50 | XMS_ITS | Encounter Summary ---
Author Organization [facility] Address [address] [place] [address] Care Team Providers Care Professor Of Archaeology Name Role Phone Conversion, History Primary Care Provider Bhavesh cohen Encounter Details Date Type Department Care Team (Latest Contact Info) Description 01/22/2008 Outpatient Historical [place] [address] [facility] [address] [place] [address] Unspecified Cholesteatoma Social History Tobacco Use Types Packs/Day Years Used Date Smoking Tobacco: Never Assessed Comments Unknown Sex and Gender Information Value Date Recorded Sex Assigned at Not on file Legal Sex Female 5:23 AM DIRECTOR REPORT Gender Identity Not on file Sexual Orientation [...] PATHOLOGY (02/21/2008 11:41 AM CDT) FINAL REPORT [facility] [address] [place], [place] [address] Patient: SHEA GARZA : 1970 Procedure Date: 02/21/2008 Accession Date: 02/21/2008 Case No: [id number] Ordering Dr: Belinda RICO Case types AW, BW, FW, NW and SH are performed by [facility] [place], [place] SURGICAL PATHOLOGY & NON-GYNECOLOGIC CYTOPATHOLOGY REPORT [...] 01:55 pm Microscopic: The slide is labeled [id number], Herminia. Sections show squamous epithelium with abundant lamellar keratin and marked fibrosis in the underlying subepithelial tissue. MACIEJ/TMZ 02.24.2008 01:49 pm Staging Form: No ELECTRONIC SIGNATURE FOR GAURANG WARREN M.D.- 02/24/08 04:31 pm INTERFACE SYSTEM 02/21/2008 11:4 1 AM CDT Belinda Rico MD PATHOLOGY/CYTOLOGY ORDERABL ES Final Result Performing Organization Address [facility] Co de Phone Number INTERFACE SYSTEM Refer to clinic/hospital department * POC , URINE (02/21/2008 7:20 AM CDT) , URINE POC Negative Negative [facility] Urine specimen (specimen) 02/21/2008 7:20 AM CDT 02/21/2008 7:20 AM CDT Belinda Rico MD POINT OF CARE TESTING Final Result Performing Organization Address [facility] Co de Phone Number INTERFACE SYSTEM Refer to clinic/hospital department [facility] CLIA# [id number] [address] [place] [address] * HEMOGLOBIN AND HEMATOCRIT (02/03/2008 8:55 AM CDT) HEMATOCRIT 42.5 35.5 - 44.0 % [facility] HEMOGLOBIN 14.1 11.8 - 14.8 g/dL [facility] Blood specimen (specimen) 02/03/2008 8:55 AM CDT 02/03/2008 9:42 AM CDT [facility] Tito Rico MD HEMATOLOGY ORDERABLES Final Result INTERFACE SYSTEM Refer to clinic/hospital department [facility] CLIA# [id number] [address] [place] [address] documented in this encounter Visit Diagnoses Diagnosis Cholesteatoma, unspecified documented in this encounter Care Teams Professor Of Archaeology Relationship Specialty Start Date End Date Conversion, History PCP - General 02/01/07 documented as of this encounter
== END 2025-01-23 14:48 | disposition home or self-care (01) ==
LOC: ANHIMG 14:48
PROVIDERS: PCP Family Medicine; Visit Provider Obstetrics & Gynecology
DX: Z12.31 Encounter for screening mammogram for malignant neoplasm of breast (principal)
CPT/HCPCS: 77063; 77067

== ENCOUNTER 2025-03-02 01:47 | Day surgery (SDC) | payer OTHER, SELFPAY ==
[2025-02-16 10:48] VITALS: BMI 38.7
--- OUTSIDE RECORDS SUMMARY | 2025-03-02 01:49 | XMS_ITS | Encounter Summary ---
Author Organization [facility] Address [address] [place] [address] Care Team Providers Care Cabinetmaker Apprentice Name Role Phone Conversion, History Primary Care Provider Bhavesh cohen Encounter Details Date Type Department Care Team (Latest Contact Info) Description 02/01/2007 Outpatient Historical [place] [address] [facility] [address] [place] [address] Unspecified Mastoiditis (Primary Dx) Social History Tobacco Use Types Packs/Day Years Used Date Smoking Tobacco: Never Assessed Comments Unknown Sex and Gender Information Value Date Recorded Sex Assigned at Not on file Legal Sex Female 5:23 AM STATION ENGINEER MAIN LINE Gender Identity Not on file Sexual Orientation [...] % INTERFACE SYSTEM 01/25/2007 3:54 PM CDT [facility] Tito Meade MD HEMATOLOGY ORDERABLES Edite d INTERFACE SYSTEM Refer to clinic/hospital department documented in this encounter Visit Diagnoses Diagnosis Unspecified mastoiditis- Primary documented in this encounter Care Teams Cabinetmaker Apprentice Relationship Specialty Start Date End Date Conversion, History PCP - General 02/01/07 documented as of this encounter
--- OUTSIDE RECORDS SUMMARY | 2025-03-02 01:49 | XMS_ITS | Encounter Summary ---
Author Organization [facility] Address [address] [place] [address] Care Team Providers Care Gutter Hanger Name Role Phone Conversion, History Primary Care Provider Bhavesh cohen Encounter Details Date Type Department Care Team (Late st Contact Info) Description 08/22/2005 Outpatient Historical [place] [address] [facility] [address] [place] [address] Other Diseases of Nasal Cavity and Sinuses (Primary Dx) Social History Tobacco Use Types Packs/Day Years Used Date Smoking Tobacco: Never Assessed Comments Unknown Sex and Gender Information Value Date Recorded Sex Assigned at Not on file Legal Sex Female 5:23 AM DRAFTER TOPOGRAPHICAL Gender Identity Not on file Sexual Orientation Not on file documented as of this encounter Plan of Treatment Not on file documented as of this encounter Visit Diagnoses Diagnosis Nasal/sinus dis NEC- Primary Other diseases of nasal cavity and sinuses documented in this encounter Care Teams Gutter Hanger Relationship Specialty Start Date End Date Conversion, History PCP - General 02/01/07 documented as of this encounter
--- OUTSIDE RECORDS SUMMARY | 2025-03-02 01:49 | XMS_ITS | Clinical Summary ---
Author Organization [facility] Address [address] [place] [id number] Phone Care Team Providers Care Photo Booth Operator Name Role Phone Conversion, History Primary [...] on file Legal Sex Female 5:23 AM SALES COACH Gender Identity Not on file Sexual Orientation Not on file Last Filed Vital Signs Vital Sign Reading Time Taken Comments Blood Pressure 119/70 04/30/2009 5:56 PM SALES COACH Pulse 72 04/30/2009 5:56 PM SALES COACH Temperature 36.3 C (97.3 F) 04/30/2009 5:56 PM SALES COACH Respiratory Rate 18 04/30/2009 5:56 PM SALES COACH Oxygen Saturation 97% 04/30/2009 5:56 PM SALES COACH Inhaled Oxygen Concentration - - Weight 74.8 kg (165 lb) 04/27/2009 4:26 PM SALES COACH Height 152.4 cm (5') 04/27/2009 4:26 PM SALES COACH Body Mass Index 32.22 04/27/2009 4:26 PM SALES COACH Plan of Treatment Health Maintenance Due Date [...] (#1) 2025 Medical Devices Implanted Type Area Electrical Appliance Repairer Device Identifier Shelf Expiration Date Model / Serial / Lot Barrier Gelfilm [id number] Implanted:Qty: 1 on 04/30/2009 at [facility] [employer] I [id number] / / Insurance Advance Directives For more information, please contact: [phone] * Full Code (Latest Code Status on File) Date Activated Date Inactivated Comments 04/30/2009 11:09 AM 04/30/2009 9:34 PM * Full Code Date Activated Date Inactivated Comments 04/30/2009 8:49 AM 04/30/2009 11:09 AM * Full Code Date Activated Date Inactivated Comments 04/30/2009 7:57 AM 04/30/2009 8:49 AM Care Teams Photo Booth Operator Relationship Specialty Start Date End Date Conversion, History PCP - General 02/01/07
--- OUTSIDE RECORDS SUMMARY | 2025-03-02 01:49 | XMS_ITS | Encounter Summary ---
Author Organization [email or web address] Address [address] [place] [address] Care Team Providers Care Fifth Grade Teacher Name Role Phone Conversion, History Primary Care Provider Bhavesh cohen Encounter Details Date Type Department Care Team (Latest Contact Info) Description 01/22/2008 Outpatient Historical [facility] [place] [id number] [facility] [address] [place] [address] Unspecified Cholesteatoma Social History Tobacco Use Types Packs/Day Years Used Date Smoking Tobacco: Never Assessed Comments Unknown Sex and Gender Information Value Date Recorded Sex Assigned at Not on file Legal Sex Female 5:23 AM SECTION HAND HELPER Gender Identity Not on file Sexual [...] PATHOLOGY (02/21/2008 11:41 AM CDT) FINAL REPORT [facility] [address], [place] [address] Patient: SHEA GARZA : 1970 Procedure Date: 02/21/2008 Accession Date: 02/21/2008 Case No: [id number] Ordering Dr: Belinda RICO Case types AW, BW, FW, NW and SH are performed by [facility] [place] [place], [place] SURGICAL PATHOLOGY & NON-GYNECOLOGIC CYTOPATHOLOGY REPORT [...] 01:55 pm Microscopic: The slide is labeled [id number], Herminia. Sections show squamous epithelium with abundant lamellar keratin and marked fibrosis in the underlying subepithelial tissue. MACIEJ/TMZ 02.24.2008 01:49 pm Staging Form: No ELECTRONIC SIGNATURE FOR GAURANG WARREN M.D.- 02/24/08 04:31 pm INTERFACE SYSTEM 02/21/2008 11:4 1 AM CDT Belinda Rico MD PATHOLOGY/CYTOLOGY ORDERABL ES Final Result Performing Organization Address [facility] Co de Phone Number INTERFACE SYSTEM Refer to clinic/hospital department * POC , URINE (02/21/2008 7:20 AM CDT) , URINE POC Negative Negative [facility] Urine specimen (specimen) 02/21/2008 7:20 AM CDT 02/21/2008 7:20 AM CDT Belinda Rico MD POINT OF CARE TESTING Final Result Performing Organization Address [facility] Co de Phone Number INTERFACE SYSTEM Refer to clinic/hospital department [facility] CLIA# [id number] [address] [place] [address] * HEMOGLOBIN AND HEMATOCRIT (02/03/2008 8:55 AM CDT) HEMATOCRIT 42.5 35.5 - 44.0 % [facility] HEMOGLOBIN 14.1 11.8 - 14.8 g/dL [facility] Blood specimen (specimen) 02/03/2008 8:55 AM CDT 02/03/2008 9:42 AM CDT [facility] Tito Rico MD HEMATOLOGY ORDERABLES Final Result INTERFACE SYSTEM Refer to clinic/hospital department [facility] CLIA# [id number] [address] [place] [address] documented in this encounter Visit Diagnoses Diagnosis Cholesteatoma, unspecified documented in this encounter Care Teams Fifth Grade Teacher Relationship Specialty Start Date End Date Conversion, History PCP - General 02/01/07 documented as of this encounter
--- OUTSIDE RECORDS SUMMARY | 2025-03-02 01:49 | XMS_ITS | Encounter Summary ---
Author Organization [facility] Address [address] [place] [address] Care Team Providers Care Lease Out Man Name Role Phone Conversion, History Primary Care Provider Bhavesh cohen Encounter Details Date Type Department Care Team (Late st Contact Info) Description 08/11/[address] 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
[2025-03-02 06:19] VITALS: BP 121/78; PULSE 93; RESP 16; TEMP 36.3; O2SAT 97
[2025-03-02] MEDS: LACTATED RINGERS 1,000 ML 150 ML IV CONT (06:37)
--- NOTE | 2025-03-02 07:18 | WPDANESEPPF ---
Anes - Initial Pre Proc Eval Procedure: Operation Date: 03/02/25 07:30 Proposed Procedures p Screening Colonoscopy - Raffi Hyman DO Date/Time: 03/02/25 07:18 Surgeon: Raffi Hyman DO Pre Op Diagnosis: Neoplasm screening Patient Data Age: 54 Gender: F Height: 1.52 m Weight: 88.4 kg Last Vital Signs Temp 97.4 F L 03/02/25 06:19 Pulse 93 03/02/25 06:19 Resp 16 03/02/25 06:19 BP 121/78 03/02/25 06:19 Pulse Ox 97 03/02/25 06:19 O2 Del Method Room Air 03/02/25 06:19 Allergies Allergy/AdvReac Type Severity Reaction Status Date / Time Sulfa (Sulfonamide Allergy Mild Unknown Verified 03/02/25 06:18 Antibiotics) Home Medications ?Medication ?Instructions ?Recorded ?Confirmed ?Type levocetirizine 5 mg tablet (Xyzal) 5 mg PO DAILY 01/19/23 02/16/25 History loratadine 10 mg tablet (Allergy 10 mg PO DAILY PRN allergies 02/16/25 03/02/25 History Relief (loratadine)) mvaaipkx-vmulsfg-your-lutein tablet 1 tablet PO DAILY 02/16/25 03/02/25 History Patient hx anesthesia problems: none Family hx anesthesia problems: none Results Review: All pre-operative results and documents have been reviewed as part of the pre-operative evaluation. [facility] Past Medical History Medical History Migraine headache Allergy Surgical History Surgical History H/O tympanomastoidectomy History of tympanoplasty History of placement of ear tubes H/O adenoidectomy Hx of tonsillectomy Hx of cholecystectomy Family History Family History Father Alcoholism Heart disease Afib Mother Endometrial cancer Hypertension Depression Anxiety Sibling Depression Anxiety Grandparent Breast cancer Diabetes mellitus Hypertension Heart disease Thyroid disorder Social History Social History (Updated 07/07/24 @ 16:08 by Charlie Ibarra MA) Smoking status: Never smoker Second hand tobacco smoke exposure: No Alcohol intake: current Alcohol use details: RARE Substance use: never Substance use type: does not use Do You Feel Safe in your Home?: Yes Lack of Transportation: No Lack of Food: Never True Current Housing: I Have Housing Concerned About Future Housing: No Difficulty Paying Gas/Electric Bills: No Difficulty Paying for Meds: No Currently Unemployed: No Education: Associate Degree Difficulty w/ Childcare or Family Care: No Living arrangements: with family Occupation/Education: occupation Gender identity (if verbalized by the patient): Female Spiritual care concerns: No Agree to blood products: Yes Anes - Eval Final PreProcedure Day of Procedure 03/02/25 07:18 Patient weight: obese Lungs: normal air movement Airway: Mallampati scale class II Neurological: alert and oriented Last oral intake: >/= 8 hours ASA classification: II Emergent: no Anesthetic plan: delay Anesthesia type and monitoring: general GIVS and standard monitoring Results Review: All pre-operative results and documents have been reviewed as part of the pre-operative evaluation. BMI 38, migrane arciniega by hx. Informed Consent: The patient's anesthetic plan and its attendant risks and benefits were discussed with the patient/family/POA. Questions were solicited and answers provided to the satisfaction of the patient/family/POA.
--- NOTE | 2025-03-02 07:32 | PM.IMHP ---
H&P: HPI History of Present Illness Date/Time: 03/02/25 07:32 Chief Complaint: Screening for colorectal cancer Narrative: this is a 54-year-old woman who presents for her 1st colonoscopy. She denies any hematochezia melena. She denies family history of colon cancer. Review of Systems Review of Systems: All systems reviewed & are unremarkable except as noted in HPI and below Constitutional: Constitutional: Denies chills, Denies fever(s), Denies headache(s) and Denies weight loss Eyes: Eyes: Denies change in vision ENT: Denies dizziness, Denies headache(s), Denies neck mass and Denies throat swelling Cardiovascular: Cardiovascular: Denies chest pain, Denies lightheadedness and Denies dyspnea Respiratory: Respiratory: Denies cough, Denies dyspnea and Denies wheezing Gastrointestinal: Gastrointestinal: Denies abdominal pain, Denies change in bowel habits, Denies nausea and Denies vomiting Genitourinary: Genitourinary: Denies hematuria and Denies dysuria Musculoskeletal: Musculoskeletal: Reports as per HPI Integumentary/Breasts: Skin/Breast: Reports as per HPI Neurologic: Denies dizziness and Denies headache(s) Allergic/Immunologic: Allergic/Immunologic: Denies throat swelling and Denies wheezing PMFSH Past Medical History Medical History Migraine headache Allergy Surgical History Surgical History H/O tympanomastoidectomy History of tympanoplasty History of placement of ear tubes H/O adenoidectomy Hx of tonsillectomy Hx of cholecystectomy Family History Family History Father Alcoholism Heart disease Afib Mother Endometrial cancer Hypertension Depression Anxiety Sibling Depression Anxiety Grandparent Breast cancer Diabetes mellitus Hypertension Heart disease Thyroid disorder Social History Social History (Updated 07/07/24 @ 16:08 by Charlie Ibarra MA) Smoking status: Never smoker Second hand tobacco smoke exposure: No Alcohol intake: current Alcohol use details: RARE Substance use: never Substance use type: does not use Do You Feel Safe in your Home?: Yes Lack of Transportation: No Lack of Food: Never True Current Housing: I Have Housing Concerned About Future Housing: No Difficulty Paying Gas/Electric Bills: No Difficulty Paying for Meds: No Currently Unemployed: No Education: Associate Degree Difficulty w/ Childcare or Family Care: No Living arrangements: with family Occupation/Education: occupation Gender identity (if verbalized by the patient): Female Spiritual care concerns: No Agree to blood products: Yes Meds Home Medications and Allergies Home Medications ?Medication ?Instructions ?Recorded ?Confirmed ?Type levocetirizine 5 mg tablet (Xyzal) 5 mg PO DAILY 01/19/23 02/16/25 History loratadine 10 mg tablet (Allergy 10 mg PO DAILY PRN allergies 02/16/25 03/02/25 History Relief (loratadine)) xweggaxn-woqtldg-wudo-lutein tablet 1 tablet PO DAILY 02/16/25 03/02/25 History Allergies Allergy/AdvReac Type Severity Reaction Status Date / Time Sulfa (Sulfonamide Allergy Mild Unknown Verified 03/02/25 06:18 Antibiotics) Vital Signs Vital Signs - 24 hr 03/02/25 06:19 Temperature 97.4 F L Pulse Rate 93 Respiratory Rate 16 Blood Pressure 121/78 Pulse Oximetry 97 Oxygen Delivery Room Air Exam Const: General: no acute distress and alert Orientation/consciousness: patient oriented x3 HENMT: Head: normocephalic and atraumatic Ears: hearing grossly normal bilaterally Face/Nose/Sinus: Normal nares present Mouth: Yes Normal oral and palatal mucosa present Eyes: Periorbital: periorbital findings normal Sclera: sclerae normal EOM: EOMs intact bilaterally Neck: Neck: normal visual inspection, no lymphadenopathy and trachea midline Chest: Chest palpation & inspection: normal inspection of the chest Resp: Effort & Inspection: normal respiratory effort Auscultation: clear to auscultation bilaterally Cardio: Jugular venous distension: no JVD Rate: regular rate Rhythm: regular rhythm Heart sounds: S1 normal heart sound present and S2 normal heart sound present Peripheral pulses: Peripheral pulses 2+ throughout GI: Inspection: normal to inspection GI Palp: Yes Soft to palpation, No Tenderness to palpation present (GI), No Guarding due to palpation present (GI) and No Rebound tenderness present Percussion: Yes normal to percussion Auscultation: normal bowel sounds : General: Yes no CVA tenderness Back/Spine/Pelvis: Back: no CVA tenderness Neuro: General: patient oriented x3, no focal motor deficits and CN's II-XI intact bilaterally Cognition (Neuro): normal cognition Speech: normal speech Motor exam (neuro): 5/5 motor strength present throughout Extrem: General: capillary refill normal and no clubbing, cyanosis or edema Assessment and Plan Assessment and plan (1) Colon cancer screening: Code(s): Z12.11 - Encounter for screening for malignant neoplasm of colon Status: Acute Assessment and Plan: I have recommended colonoscopy. I have discussed the procedure, risks, benefits, and alternatives. Questions were answered. Patient is agreeable to proceed.
[2025-03-02 07:50] VITALS: BP 99/56; PULSE 77; RESP 22; O2SAT 95
[2025-03-02 08:00] VITALS: BP 100/52; PULSE 68; RESP 21; O2SAT 100
[2025-03-02 08:10] VITALS: BP 110/52; PULSE 67; RESP 19; O2SAT 97
== END 2025-03-02 08:20 | disposition home or self-care (01) ==
PROVIDERS: PCP Family Medicine; Visit Provider Surgery
PROC: 0DJD8ZZ Inspection of Lower Intestinal Tract, Via Natural or Artificial Opening Endoscopic (ICD-10-PCS; CPT 45378; principal; 2025-03-02 07:30)
DX: Z12.11 Encounter for screening for malignant neoplasm of colon (principal); E66.9 Obesity, unspecified; Z68.38 Body mass index [BMI] 38.0-38.9, adult
CPT/HCPCS: 45378; J2003; J2704; J7120